=== PATIENT | female | born 1980 | race Caucasian/White ===

== ENCOUNTER 2025-02-19 21:10 | Emergency (ER) | payer SELFPAY ==
[~2025-02-19] VITALS: Ht 157.5 cm; Wt 68.0 kg
--- NOTE | 2025-02-19 22:12 | ERN ---
ED Note History of Present Illness Stated Complaint: RIGHT NECK ARM AND LEG PAIN Chief Complaint: Other Problems Time Seen by MD: 21:15 Dictation: 44-year-old female presents to ER complaints of right arm shoulder pain and right lower leg pain. Patient states pains have been going on for about 2-3 weeks. Patient states she is going to physical therapy. Denies any recent trauma. States has been taking Tylenol, Motrin, gabapentin. 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 BACK: NEGATIVE FOR PAIN OR INJURY : NEGATIVE FOR INJURY, BLEEDING AND DISCHARGE MS/EXTREMITY: NEGATIVE FOR INJURY AND DEFORMITY. Positive pain right arm and right leg SKIN: NEGATIVE FOR RASH, AND DISCOLORATION NEURO: NEGATIVE FOR HEADACHE, WEAKNESS, NUMBNESS, TINGLING, AND SEIZURE PSYCH: NEGATIVE FOR SUICIDE IDEATION, HOMICIDAL IDEATION, AND HALLUCINATIONS ALLERGY/IMMUNOLOGY: NEGATIVE FOR HIVES, RASH, AND ALLERGIES ALL SYSTEMS NEGATIVE, EXCEPT NOTED ABOVE. 13 POINT REVIEW OF SYSTEMS ASSESSED AND ALL NEGATIVE EXCEPT FOR ABOVE. Initial Vital Sign VS Vital Signs Date Time Temp Pulse Resp B/P (MAP) Pulse Ox O2 Delivery O2 Flow Rate FiO2 02/19/25 21:11 98.1 86 16 116/50 99 Room Air 0 Physical Exam Dictation General: awake, alert, NAD Head/Face: Normocephalic, atraumatic Eyes: PERRL, EOMI, vision at baseline ENT: oral cavity clear, TMs clear, no signs of infection Neck: Trachea midline, supple, no nuchal rigidity Cardiovascular: RRR, normal no JVD Respiratory: CTAB, no respiratory distress, No rales or wheezes Abdomen: Soft, non-tender, non-distended, normal bowel sounds, no guarding or rebound. Skin: Warm, dry, normal turgor, no rash MS/Extremity: Pulses equal, no cyanosis, neurovascular intact, pain with range of motion to right arm and right leg. No deformity noted. No swelling no bruising. Neuro: COAx4, GCS 15, strength 5/5, CN 2-12 intact, normal cerebellar exam, normal gait, Psych: Normal behavior, mood, and affect normal ED Course ED Course Orders Procedure Category Date Status Time Ketorolac PHA 02/19/25 Complete Tromethamine 30mg/Ml 22:30 Current Medications Medications (Trade) Dose Ordered Sig/Dougie Route PRN Reason Start Time Stop Time Status Last Admin Dose Admin Ketorolac Tromethamine (toRADol) 30 mg ONCE ONCE IM 02/19/25 22:30 02/19/25 22:31 DC 02/19/25 22:46 Vital Signs Date Time Temp Pulse Resp B/P (MAP) Pulse Ox O2 Delivery O2 Flow Rate FiO2 02/19/25 21:11 98.1 86 16 116/50 99 Room Air 0 Medical Decision Making MDM MDM: Differential diagnosis: Muscle strain, sciatica, chronic pain Rationale: Tests considered and ordered secondary to shared decision making include: labs, ECG and radiology Previous outside records reviewed: Old ER visits. Risk of complication and/or morbidity or mortality of patient management: None Medications-Per medication reconciliation Need for hospitalization: Patient does NOT meet criteria for hospitalization. Need for emergency major/minor surgery: No There are no social concerns with this patient. Prescription drug management Prescriptions will include symptomatic care Patient's prior external medical records from other ER visits were reviewed by me as indicated. Prior testing and results from previous visits were reviewed. Prior tests were taken into account with medical decision making and resource utilization, independent historian/historians were used to obtain complete medical history. I independently interpreted the test that were performed, results were reviewed by me and considered findings on radiology if ordered. DX & DISP Disposition: Discharge Departure Impression: Primary Impression: Shoulder blade pain Additional Impressions: Right leg pain, Sciatica, Muscle strain Condition: Stable Scripts Naproxen (Naprosyn) 500 Mg Tablet 1 TAB PO BID for pain, #20 TAB 0 Refills Prov: TRINO FUENTES 02/19/25 Additional Instructions: You need to continue with your physical therapy. Follow up with your doctor for any further pain control. FOLLOW-UP WITH YOUR PCP IN 24-72 HOURS AND IN THE EVENT IF SYMPTOMS WORSEN OR AN EMERGENCY OVERNIGHT REPORT TO THE ED IMMEDIATELY TRINO FUENTES Feb 19, 2025 22:12
[2025-02-19] MEDS ORDERED: NAPR-1180 PO (22:33)
[2025-02-19 22:57] VITALS: BP 122/62; PULSE 89; RESP 20; TEMP 98; O2SAT 100
== END 2025-02-19 22:58 | disposition home or self-care (01) ==
LOC: EDH 21:10
DX: S86.911A Strain of unspecified muscle(s) and tendon(s) at lower leg level, right leg, initial encounter (principal); M54.31 Sciatica, right side; M25.511 Pain in right shoulder; F32.A Depression, unspecified; Z79.899 Other long term (current) drug therapy; Z88.5 Allergy status to narcotic agent; X58.XXXA Exposure to other specified factors, initial encounter; Y93.89 Activity, other specified; Y92.89 Other specified places as the place of occurrence of the external cause; Y99.8 Other external cause status
CPT/HCPCS: 99283; 96372; J1885